=== PATIENT | female | born 1965 ===

== ENCOUNTER → 2021-11-06 | Outpatient (CLI) | payer BC ==
[~2021-11-06] VITALS: Ht 172.7 cm; Wt 70.8 kg
== END | disposition home or self-care (01) ==
LOC: Rad HDHVI 08:20
PROVIDERS: ATTEND Internal Medicine Cardiovascular Disease
DX: R07.89 Other chest pain (principal); R00.2 Palpitations; E78.00 Pure hypercholesterolemia, unspecified
CPT/HCPCS: 78452; 93017; 96374; A9500